=== PATIENT | female | born 1980 | race Caucasian/White ===

== ENCOUNTER 2017-12-19 14:00 | Emergency (ER) | payer BC ==
[2017-12-19 14:12] VITALS: BP 134/85
--- NOTE | 2017-12-19 14:48 | UC ---
Ear Complaint HPI - HPI Summary HPI Summary: WOKE UP THIS MORNING WITH LEFT EAR PAIN. NO HEARING LOSS OR DRAINAGE FROM THE EAR. HAD A URI LAST WEEK THAT IS NOW RESOLVED. NO FEVER. - History of Current Complaint Chief Complaint: UCEar Stated Complaint: EAR PAIN Time Seen by Provider: 12/19/17 14:47 Hx Obtained From: Patient Hx Last Menstrual Period: currently Onset/Duration: Sudden Onset, Lasting Hours, Still Present Severity Initially: Moderate Severity Currently: Moderate Pain Intensity: 6 Pain Scale Used: 0-10 Numeric Aggravating Factors: Nothing Alleviating Factors: OTC Meds - IBUPROFEN Associated Signs/Symptoms: Negative: Discharge, Hearing Loss - Allergies/Home Medications Allergies/Adverse Reactions: Allergies Allergy/AdvReac Type Severity Reaction Status Date / Time No Known Allergies Allergy Verified 12/19/17 14:10 Home Medications: Home Medications Metoprolol Tartrate TAB* [Lopressor TAB*] 50 mg PO DAILY 12/19/17 [History Confirmed 12/19/17] PMH/Surg Hx/FS Hx/Imm Hx - Additional Past Medical History Additional PMH: FATTY LIVER Cardiovascular History: Hypertension - Surgical History Surgical History: Yes Surgery Procedure, Year, and Place: wisdom teeth removed; left kidney (stent) - Family History Known Family History: Negative: Hypertension - Social History Alcohol Use: Rare Substance Use Type: None Smoking Status (MU): Never Smoked Tobacco Review of Systems Constitutional: Negative Skin: Negative ENT: Ear Ache Respiratory: Negative Cardiovascular: Negative Gastrointestinal: Negative All Other Systems Reviewed And Are Negative: Yes Physical Exam Triage Information Reviewed: Yes Appearance: Well-Appearing, No Pain Distress, Well-Nourished Vital Signs: Initial Vital Signs Temp 97.3 F 12/19/17 14:07 Pulse 79 12/19/17 14:07 Resp 16 12/19/17 14:07 BP 134/85 12/19/17 14:07 Pulse Ox 100 12/19/17 14:07 Vital Signs Reviewed: Yes Eyes: Positive: Conjunctiva Clear ENT: Positive: Hearing grossly normal, Pharynx normal, TMs normal, Uvula midline. Negative: Nasal congestion, Hoarse voice Neck: Positive: Supple, Nontender Respiratory Exam: Normal Cardiovascular Exam: Normal Abdomen Description: Positive: Soft Musculoskeletal: Positive: No Edema Neurological: Positive: Alert Psychological: Positive: Age Appropriate Behavior Skin: Negative: rashes Ear Complaint Course/Dx - Course Course Of Treatment: NOTHING ON EXAM TO EXPLAIN PT DISCOMFORT. ADVISED OTC IBUPROFEN AND CAREFUL OBSERVATION. SEEK F/U IF SX DO NOT IMPROVE. - Differential Dx/Diagnosis Provider Diagnoses: LEFT EAR PAIN Discharge - Sign-Out/Discharge Documenting (check all that apply): Patient Departure All imaging exams completed and their final reports reviewed: No Studies - Discharge Plan Condition: Stable Disposition: HOME Patient Education Materials: Earache (ED) Referrals: Jennie Markham [Primary Care Provider] - If Needed Additional Instructions: EAR PAIN, NON-SPECIFIC There are many causes of ear pain in adults. Pain that's felt in the ear can actually be coming from somewhere nearby. This is called "referred pain." Problems in the teeth, throat, or jaw joint (TMJ) often cause ear pain. Sometimes the physical exam or medical history suggests a treatable cause. If not, we may wait for the pain to go away. New symptoms may offer a clue to the cause of the pain. Report any changes to your care provider. These are some conditions that can cause ear pain, but may not be obvious from physical examination: Eardrum injury Pressure changes (barotrauma) due to swimming or shock waves Mild trauma such as Q-tip injury or finger-picking the outer ear Mild outer ear infection (swimmer's ear) Low-grade or chronic middle ear infection Mastoiditis (infection in the bone behind the ear) TMJ syndrome or arthritis of the jaw Pressure from hard earwax Tooth infection Infected tonsil Sinus infection Nerve disease such as Champagne's Palsy Follow your care provider's treatment recommendations. Let the ear rest. Don't insert cotton swabs, dig at the ear with your finger, or force your ears to "pop." If you're not improving after a few days, or if new symptoms arise, see the doctor. Watch for: Decreased hearing Spreading pain or headache Drainage or bleeding from the ear Fever Weakness of the face muscles Other new symptoms IF YOUR SYMPTOMS DO NOT IMPROVE SEEK FOLLOW-UP WITH YOUR PCP OR [facility] [address] [address] [facility] [phone] - Billing Disposition and Condition Condition: STABLE Disposition: Home
== END 2017-12-19 15:35 | disposition home or self-care (01) ==
LOC: UCEAST 14:00
DX: H92.02 Otalgia, left ear (principal); I10 Essential (primary) hypertension
CPT/HCPCS: 99211; G0463

== ENCOUNTER 2018-01-01 16:49 | Emergency (ER) | payer BC ==
[2018-01-01 18:08] VITALS: BP 147/104
--- NOTE | 2018-01-01 18:42 | ED ---
Throat Pain/Nasal Congestion - HPI Summary HPI Summary: Patient presents with 2 day history of right submandibular/deep pain with associated paresthesia about her right cheek. She reports she is tender to touch in the submandibular area but this doesn't quite get to her area of pain which is deeper inside her neck and throat space area. She's been able to eat and drink without difficulty. Denies fever, chills, headache, neck stiffness, chest pain, shortness of breath, rash, headache, dental pain, discharge from teeth or tenderness with eating, rhinorrhea, sneezing, coughing, sinus pain or pressure, ear pain, balance issues or dizziness. She does admit she had some right-sided otalgia a few weeks ago and was seen here in the urgent care. Her physical findings were normal and she was told to follow up if her symptoms persisted. She reports her ear pain has resolved and has not returned since so she has not followed up with her PCP or ENT. For her current symptoms she has tried heat on her Rt side of face and an aspirin this morning which did help her pain but it's returned since medications are out of her system. NOTE: h/o smoking. No h/o previous HPV found on paps. Denies decreased saliva. H /o tonsiliths - this feels different. - History of Current Complaint Chief Complaint: UCGeneralIllness Time Seen by Provider: 01/01/18 18:17 Hx Obtained From: Patient - Allergies/Home Medications Allergies/Adverse Reactions: Allergies Allergy/AdvReac Type Severity Reaction Status Date / Time No Known Allergies Allergy Verified 01/01/18 18:08 Home Medications: Home Medications Aspirin TAB* [Aspirin 325 MG TAB*] 650 mg PO ONCE PRN 01/01/18 [History Confirmed 01/01/18] PMH/Surg Hx/FS Hx/Imm Hx Previously Healthy: Yes Endocrine/Hematology History: Denies: Hx Anticoagulant Therapy, Hx Diabetes, Hx Thyroid Disease, Autoimmune Disease Cardiovascular History: Reports: Hx Hypertension Denies: Hx Aneurysm, Hx Congestive Heart Failure Respiratory History: Denies: Hx Asthma, Hx Chronic Obstructive Pulmonary Disease (COPD) GI History: Denies: Hx Ulcer - Surgical History Surgery Procedure, Year, and Place: wisdom teeth removed; left kidney (stent) Infectious Disease History: No Infectious Disease History: Denies: Hx Clostridium Difficile, Hx Hepatitis, Hx Human Immunodeficiency Virus (HIV), Hx of Known/Suspected MRSA, Hx Shingles, Hx Tuberculosis, Hx Known/ Suspected VRE, Hx Known/Suspected VRSA, History Other Infectious Disease, Traveled Outside the [place] in Last 30 Days - Family History Known Family History: Positive: None Negative: Hypertension - Social History Occupation: Employed Part-time, Student Lives: With Family - Alcohol Use: Occasionally Hx Substance Use: No Substance Use Type: Reports: None Hx Tobacco Use: Yes - not currently Smoking Status (MU): Former Smoker Review of Systems Constitutional: Negative Negative: Fever, Chills, Fatigue Eyes: Negative Positive: Sore Throat. Negative: Dental Pain, Ear Ache, Nasal Discharge Cardiovascular: Negative Negative: Chest Pain Respiratory: Negative Negative: Shortness Of Breath Gastrointestinal: Negative Positive: no symptoms reported Musculoskeletal: Negative Skin: Negative Negative: Rash Neurological: Negative Negative: Headache Psychological: Normal All Other Systems Reviewed And Are Negative: Yes Physical Exam Triage Information Reviewed: Yes Vital Signs On Initial Exam: Initial Vitals Temp Pulse Resp BP Pulse Ox 98.8 F 88 16 147/104 100 01/01/18 18:04 01/01/18 18:04 01/01/18 18:04 01/01/18 18:04 01/01/18 18:04 Vital Signs Reviewed: Yes Appearance: Positive: Well-Appearing, No Pain Distress, Well-Nourished Skin: Positive: Warm, Skin Color Reflects Adequate Perfusion, Dry - no erythema or ecchymosis over affected area on Rt mandible/neck/submandibular region Head/Face: Positive: Normal Head/Face Inspection Eyes: Positive: Normal, EOMI, Conjunctiva Clear. Negative: Conjunctiva Inflammed, Discharge ENT: Positive: Normal ENT inspection, Hearing grossly normal, Pharyngeal erythema - peritonsilar arches w/ erythema - no edema, no exudates - NTTP, TMs normal, Uvula midline. Negative: Nasal congestion, Nasal drainage, Tonsillar swelling, Tonsillar exudate, Trismus, Muffled voice, Hoarse voice, Dental tenderness, Sinus tenderness Dental: Positive: Other - multiple small amalgom fillings - dentition and gingiva appear healthy otherwise - oral cavity and throat NTTP. Negative: Dental Fracture @, Abscess @ Neck: Positive: Supple, No Lymphadenopathy, Tenderness @ - soft tissue just inferior to Rt ramus/angle of mandible (mild) Respiratory/Lung Sounds: Positive: Clear to Auscultation, Breath Sounds Present. Negative: Stridor, Tracheal Deviation, Wheezes Cardiovascular: Positive: Normal, RRR Abdomen Description: Positive: Soft Musculoskeletal: Positive: Normal, Strength/ROM Intact Neurological: Positive: Normal, Sensory/Motor Intact, Alert, Oriented to Person Place, Time, CN Intact II-III - EXCEPT decreased sensation over Rt maxillary region - NTTP, Normal Gait, Facial Symmetry, Speech Normal. Negative: Disoriented, Pronator Drift Present Psychiatric: Positive: Normal Diagnostics - Vital Signs Vital Signs Temp Pulse Resp BP Pulse Ox 01/01/18 18:04 98.8 F 88 16 147/104 100 - Laboratory Lab Statement: Any lab studies that have been ordered have been reviewed, and results considered in the medical decision making process. EENT Course/Dx - Course Course Of Treatment: strep neg. recommend labs and CT w/ contrast - not available here at - recommend going to ED. Pt will either do this or call PCP and request test be ordered outpt. Advised if danger s/sx present, she needs to go directly to the ED - pt agrees w/ plan. WIll continue heat and NSAID 's in the meantime. - Diagnoses Provider Diagnoses: Neck pain on right side Discharge - Sign-Out/Discharge Documenting (check all that apply): Patient Departure All imaging exams completed and their final reports reviewed: No Studies - Discharge Plan Condition: Stable Disposition: HOME-RECOMMEND TO ED Patient Education Materials: Neck Pain (ED) Referrals: Jennie Markham [Primary Care Provider] - Additional Instructions: The additional testing required to identify the root cause of your symptoms may be done through the emergency department or your PCP in the next 1-2 days. This testing would include lab work and CT imaging with contrast. Please call your PCP in the morning to arrange testing or go to the ED if you have difficulty breathing or swallowing. - Billing Disposition and Condition Condition: STABLE Disposition: Home-Recommend to ED
== END 2018-01-01 19:40 | disposition home health service (06) ==
LOC: UCEAST 16:49
DX: M54.2 Cervicalgia (principal); Z87.891 Personal history of nicotine dependence
CPT/HCPCS: 87651; 99212; G0463

== ENCOUNTER 2018-01-01 20:01 | Emergency (ER) | payer BC ==
[2018-01-02] MEDS ORDERED: Ibuprofen TAB* 600 MG PO ONE (00:32)
[2018-01-02 00:49] LABS: ABS Basophils 0.1 10^3/ul (0-0.2); ABS Eosinophils 0.1 10^3/ul (0-0.6); ABS Lymphocytes 3.6 10^3/ul (1.0-4.8); ABS Monocytes 0.8 10^3/ul (0-0.8); ABS Nucleated RBC 0 10^3/ul; Hematocrit 41 % (35-47); Hemoglobin 13.6 g/dl (12.0-16.0); Lymphocyte % 28.4 % (25-47); Mean Corpuscular HGB Conc 34 g/dl (31-36); Mean Corpuscular Hemoglobin 30 pg (27-31); Mean Corpuscular Volume 88 fL (80-97); Mean Platelet Volume 7.6 um3 (7.4-10.4); Nucleated Red Blood Cells % 0; Platelet Count 303 10^3/ul (150-450); Red Blood Count 4.62 10^6/ul (4.00-5.40); Red Cell Distribution Width 13 % (10.5-15); White Blood Count 12.6 10^3/ul (3.5-10.8)
[2018-01-02 01:05] LABS: EGFR Non-African American 73.1 (>60)
[2018-01-02] MEDS ORDERED: Iohexol 300* (CONTRAST) 10 ML SDV IV ONE (01:36)
--- NOTE | 2018-01-02 02:19 | RAD ---
EXAM: CT Neck With Intravenous Contrast EXAM DATE/TIME: 01/02/2018 1:46 AM CLINICAL HISTORY: 37 years old, female; Patient states that she feels she has a swollen gland in the right side of her face and that she has been having numbness in the right side of her face for 2 days. TECHNIQUE: Axial computed tomography images of the neck with intravenous contrast. All CT scans at this facility use at least one of these dose optimization techniques: automated exposure control; mA and/or kV adjustment per patient size (includes targeted exams where dose is matched to clinical indication); or iterative reconstruction. Coronal and sagittal reformatted images were created and reviewed. CONTRAST: 50 ml of OMNI administered intravenously. COMPARISON: No relevant prior studies available. FINDINGS: Brain: There is no evidence for an acute large vessel territorial infarct, intracranial hemorrhage, mass, mass effect, or herniation. The cortical gyration pattern, basal ganglia, thalami, and cerebellum are normal in appearance. Brainstem: Unremarkable. Midline shift: There is no midline shift. Orbits: The globes and orbits are intact and normal in appearance. Sinuses: The sinuses are clear. The osteomeatal units are patent. The infundibuli are bordered laterally by orbit on both sides. Nasopharynx: Normal. Oropharynx: Normal. No tonsillar enlargement. No peritonsillar abscess. Hypopharynx: Normal. Larynx: Normal. Normal epiglottis. Trachea: Normal. Retropharyngeal space: Normal. Submandibular/Parotid glands: Normal. Glands are normal in size. Thyroid: Normal. No enlarged or calcified nodules. Bones/joints: The imaged bony structures are intact. There is no suspicious osteolytic or osteoblastic lesion. At the C4-C5 level, there is a 2 mm posterior disc osteophyte complex with a central and right paracentral component that causes mild spinal canal stenosis. No disc herniation, spinal canal stenosis, or neural foraminal stenosis is noted at the rest of the imaged levels in the cervical spine and upper thoracic spine. Mastoid air cells: The mastoid air cells are clear. Soft tissues: Unremarkable. No soft tissue swelling or fluid collection is noted. Vasculature: No acute findings. Lymph nodes: Normal. No lymphadenopathy. Lung apices: Normal as visualized. Dental: No dental caries or periapical abscess is noted. The wisdom teeth and left lower first molar have been removed. IMPRESSION: 1. No acute findings, mass, or abscess in the neck. 2. C4-C5: Mild spinal canal stenosis, where there is a 2 mm posterior disc osteophyte complex with a central and right paracentral component. 3. No CT evidence for an acute intracranial process. To contact [facility] with a general question: Operations Center - [phone] For direct physician to physician contact: Physician Hotline - [phone] [facility] ([facility] Facility ID #[id number])
--- NOTE | 2018-01-02 02:56 | ED ---
Throat Pain/Nasal Congestion - HPI Summary HPI Summary: Patient complains of swelling to right side upper neck with some numbness and tingling in right side face 2 days. Pain is constant. Patient [facility] at [facility] and sent to the ED for further evaluation. Denies prior history of same. Denies pain with swallowing, sore throat, JURADO, nasal congestion , jaw pain, cough, change in saliva, fever, ear pain. Medical history is HTN. Strep negative at [facility]. - History of Current Complaint Chief Complaint: EDGeneral Time Seen by Provider: 01/02/18 00:15 Hx Obtained From: Patient Onset/Duration: Gradual Onset Severity: Moderate Associated Signs And Symptoms: Positive: Negative Cough: None - Epiglottits Risk Factors Epiglottis Risk Factors: Negative - Allergies/Home Medications Allergies/Adverse Reactions: Allergies Allergy/AdvReac Type Severity Reaction Status Date / Time No Known Allergies Allergy Verified 01/01/18 20:11 PMH/Surg Hx/FS Hx/Imm Hx Endocrine/Hematology History: Denies: Hx Anticoagulant Therapy, Hx Diabetes, Hx Thyroid Disease Cardiovascular History: Reports: Hx Hypertension Denies: Hx Aneurysm, Hx Congestive Heart Failure Respiratory History: Denies: Hx Asthma, Hx Chronic Obstructive Pulmonary Disease (COPD) GI History: Denies: Hx Ulcer - Surgical History Surgery Procedure, Year, and Place: wisdom teeth removed; left kidney (stent) Infectious Disease History: No Infectious Disease History: Denies: Hx Clostridium Difficile, Hx Hepatitis, Hx Human Immunodeficiency Virus (HIV), Hx of Known/Suspected MRSA, Hx Shingles, Hx Tuberculosis, Hx Known/ Suspected VRE, Hx Known/Suspected VRSA, History Other Infectious Disease, Traveled Outside the [place] in Last 30 Days - Family History Known Family History: Positive: None Negative: Hypertension Family History: NON CONTRIBUTORY - Social History Alcohol Use: Occasionally Hx Substance Use: No Substance Use Type: Reports: None Hx Tobacco Use: Yes - not currently Smoking Status (MU): Former Smoker Review of Systems Constitutional: Negative Eyes: Negative ENT: Negative Cardiovascular: Negative Respiratory: Negative Gastrointestinal: Negative Genitourinary: Negative Musculoskeletal: Negative Skin: Negative Neurological: Negative Psychological: Normal All Other Systems Reviewed And Are Negative: Yes Physical Exam - Summary Physical Exam Summary: Submandibular tenderness to palpation. Mild swelling. No erythema, extra warmth to area. ENT exam otherwise normal. Triage Information Reviewed: Yes Vital Signs On Initial Exam: Initial Vitals Temp Pulse Resp BP Pulse Ox 97.7 F 89 16 148/105 99 01/01/18 20:09 01/01/18 20:09 01/01/18 20:09 01/01/18 20:09 01/01/18 20:09 Vital Signs Reviewed: Yes Appearance: Positive: Well-Appearing Skin: Positive: Warm Head/Face: Positive: Normal Head/Face Inspection Eyes: Positive: Normal ENT: Positive: Normal ENT inspection Neck: Positive: Supple Respiratory/Lung Sounds: Positive: Clear to Auscultation Cardiovascular: Positive: Normal Abdomen Description: Positive: Nontender Musculoskeletal: Positive: Normal Neurological: Positive: Normal Psychiatric: Positive: Normal AVPU Assessment: Alert - [place] Coma Scale Best Eye Response: 4 - Spontaneous Best Motor Response: 6 - Obeys Commands Best Verbal Response: 5 - Oriented Coma Scale Total: 15 Diagnostics - Vital Signs Vital Signs Temp Pulse Resp BP Pulse Ox 01/01/18 22:11 97.6 F 79 16 155/99 01/01/18 20:09 97.7 F 89 16 148/105 99 - Laboratory Lab Results: Lab Results 01/02/18 01/02/18 Range/Units 00:42 00:42 WBC 12.6 H (3.5-10.8) 10^3/ul RBC 4.62 (4.00-5.40) 10^6/ul Hgb 13.6 (12.0-16.0) g/dl Hct 41 (35-47) % MCV 88 (80-97) fL MCH 30 (27-31) pg MCHC 34 (31-36) g/dl RDW 13 (10.5-15) % Plt Count 303 (150-450) 10^3/ul MPV 7.6 (7.4-10.4) um3 Neut % (Auto) 63.9 (38-83) % Lymph % (Auto) 28.4 (25-47) % [place] % (Auto) 6.3 (0-7) % Eos % (Auto) 1.0 (0-6) % Baso % (Auto) 0.4 (0-2) % Absolute Neuts (auto) 8.0 H (1.5-7.7) 10^3/ul Absolute Lymphs (auto) 3.6 (1.0-4.8) 10^3/ul Absolute Monos (auto) 0.8 (0-0.8) 10^3/ul Absolute Eos (auto) 0.1 (0-0.6) 10^3/ul Absolute Basos (auto) 0.1 (0-0.2) 10^3/ul Absolute Nucleated RBC 0 10^3/ul Nucleated RBC % 0 Sodium 138 (135-145) mmol/L Potassium 4.0 (3.5-5.0) mmol/L Chloride 106 (101-111) mmol/L Carbon Dioxide 26 (22-32) mmol/L Anion Gap 6 (2-11) mmol/L BUN 10 (6-24) mg/dL Creatinine 0.88 (0.51-0.95) mg/dL Est GFR ( Amer) 88.5 (>60) Est GFR (Non-Af Amer) 73.1 (>60) BUN/Creatinine Ratio 11.4 (8-20) Glucose 99 (70-100) mg/dL Calcium 9.6 (8.6-10.3) mg/dL Total Bilirubin 0.60 (0.2-1.0) mg/dL AST 26 (13-39) U/L ALT 40 (7-52) U/L Alkaline Phosphatase 102 (34-104) U/L C-Reactive Protein 11.40 H (<8.01) mg/L Total Protein 7.3 (6.4-8.9) g/dL Albumin 4.5 (3.2-5.2) g/dL Globulin 2.8 (2-4) g/dL Albumin/Globulin Ratio 1.6 (1-3) Result Diagrams: 01/02/18 00:42 01/02/18 00:42 Lab Statement: Any lab studies that have been ordered have been reviewed, and results considered in the medical decision making process. EENT Course/Dx - Course Course Of Treatment: Patient complains of swelling to right side upper neck with some numbness and tingling in right side face 2 days. Pain is constant. Patient [facility] seen at [facility] and sent to the ED for further evaluation. Denies prior history of same. Denies pain with swallowing, sore throat, JURADO, nasal congestion, jaw pain, cough, change in saliva, fever, ear pain. Medical history is HTN. Strep negative at [facility]. Physical exam: Submandibular tenderness to palpation. Mild swelling. No erythema, extra warmth to area. ENT exam otherwise normal. Vital signs normal. White count 12.6. CRP 11. Labs otherwise unremarkable. Ct neck neg. - Diagnoses Provider Diagnoses: Neck pain on right side Discharge - Sign-Out/Discharge Documenting (check all that apply): Patient Departure - Discharge Plan Condition: Stable Disposition: HOME Patient Education Materials: Neck Pain (ED) Referrals: Jennie Markham [Primary Care Provider] - Additional Instructions: Try lemon drops. Follow-up with primary care. Return to the ED for any new or worsening symptoms - Billing Disposition and Condition Condition: STABLE Disposition: Home
[2018-01-02 03:42] VITALS: BP 140/107
== END 2018-01-02 03:40 | disposition home or self-care (01) ==
LOC: ED 20:01
DX: M54.2 Cervicalgia (principal); Z87.891 Personal history of nicotine dependence
CPT/HCPCS: 36415; 70491; 80053; 85025; 86140; 99282; A9270-GY; Q9967

== ENCOUNTER 2018-08-14 13:52 | Emergency (ER) | payer BC ==
[2018-08-14 14:07] VITALS: BP 135/95
--- NOTE | 2018-08-14 14:38 | UC ---
Lower Extremity/Ankle HPI - HPI Summary HPI Summary: 37 yo female presents with left foot pain for 4 months. She tells me that she initially had this pain at her heels and bottom of both her feet that began about 4 months ago. She saw her PCP for this and was told she had plantar fasciitis and advised to wear supportive shoes. She did this and her RIGHT foot pain resolved, but her left foot pain has not - prompting her visit to . 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 Pain is better with rest. No specific injury. - History of Current Complaint Chief Complaint: UCLowerExtremity Stated Complaint: FOOT PAIN Time Seen by Provider: 08/14/18 14:37 Hx Obtained From: Patient Hx Last Menstrual Period: 07/31/18 Severity Initially: Moderate Severity Currently: Moderate Pain Intensity: 6 Aggravating Factor(s): Standing, Ambulation Alleviating Factor(s): Rest Able to Bear Weight: Yes - Allergies/Home Medications Allergies/Adverse Reactions: Allergies Allergy/AdvReac Type Severity Reaction Status Date / Time No Known Allergies Allergy Verified 08/14/18 14:07 PMH/Surg Hx/FS Hx/Imm Hx Cardiovascular History: Hypertension Other History Of: Negative For: Anticoagulant Therapy - Surgical History Surgical History: Yes Surgery Procedure, Year, and Place: wisdom teeth removed; left kidney (stent) - Family History Known Family History: Positive: None Negative: Hypertension Family History: NON CONTRIBUTORY - Social History Occupation: Employed Full-time Lives: With Family Alcohol Use: Occasionally Substance Use Type: None Smoking Status (MU): Former Smoker Review of Systems All Other Systems Reviewed And Are Negative: Yes Constitutional: Positive: Negative Skin: Positive: Negative Respiratory: Positive: Negative Cardiovascular: Positive: Negative Neurovascular: Positive: Negative Musculoskeletal: Positive: Other: - Left foot pain Neurological: Positive: Negative Psychological: Positive: Negative Physical Exam - Summary Physical Exam Summary: GENERAL: NAD. WDWN. No pain distress. SKIN: No rashes, sores, lesions, or open wounds. CHEST: No accessory muscle use. Breathing comfortably and in no distress. CV: Pulses intact PT and DP. Cap refill <2seconds MSK: LEFT FOOT: TTP at plantar fascia and achilles tendon insertion at heel. Pain reproduced with dorsiflexion. FROM. NTTP ankle. Strength 5/5. No edema or obvious bony deformities. No point tenderness of foot NEURO: Alert. Sensations intact and symmetric B/L LEs PSYCH: Age appropriate behavior. Triage Information Reviewed: Yes Vital Signs: Initial Vital Signs Temp 98.8 F 08/14/18 14:03 Pulse 92 08/14/18 14:03 Resp 17 08/14/18 14:03 BP 135/95 08/14/18 14:03 Pulse Ox 99 08/14/18 14:03 Vital Signs Reviewed: Yes Lower Extremity Course/Dx - Course Course Of Treatment: Suspect plantar fasciitis with achilles tendinitis. Advised pt to RICE and she was provided with a CAM boot to use with ambulation as much as possible. Advised to f/u with Ortho if symptoms do not improve. - Differential Dx/Diagnosis Provider Diagnosis: Plantar fasciitis of left foot Discharge - Sign-Out/Discharge Documenting (check all that apply): Patient Departure All imaging exams completed and their final reports reviewed: No Studies - Discharge Plan Condition: Stable Disposition: HOME Patient Education Materials: Plantar Fasciitis (ED), Achilles Tendinitis (ED) Referrals: Jennie Markham [Primary Care Provider] - Vik Alston MD [Medical Doctor] - 2 Weeks Additional Instructions: If you develop a fever, shortness of breath, chest pain, new or worsening symptoms - please call your PCP or go to the ED immediately. Your blood pressure was high at todays visit. Please see your primary provider within 4 weeks for recheck and re-evaluation. 1) Please use the CAM boot as much as possible when walking to reduce pain 2) I recommend you call Orthopedics at the number below to schedule an appointment in about 2 weeks for a recheck - Billing Disposition and Condition Condition: STABLE Disposition: Home
== END 2018-08-14 14:59 | disposition home or self-care (01) ==
LOC: UCEAST 13:52
DX: M72.2 Plantar fascial fibromatosis (principal); I10 Essential (primary) hypertension; Z87.891 Personal history of nicotine dependence
CPT/HCPCS: 99212; G0463